=== PATIENT | female | born 1995 | race Caucasian/White ===

== ENCOUNTER 2017-10-29 08:03 | Emergency (ER) | payer OTHER ==
[2017-10-29 08:09] VITALS: BMI 26.6
--- NOTE | 2017-10-29 08:47 | PDOC ---
History of Present Illness - General Chief Complaint: Vaginal Bleeding Stated Complaint: VAGINAL BLEEDING, 14 WEEKS Time Seen by Provider: 10/29/17 08:33 History Source: Patient Exam Limitations: No Limitations - History of Present Illness Initial Comments: CHIEF COMPLAINT: 22 y/o afebrile female, A1, approximately 14 weeks with due date of 05/06/18 c/o abdominal cramping and vaginal bleeding this morning. HISTORY OF PRESENT ILLNESS: The patient admits to some passage of clots. She denies f/c, n/v/d, CP, SOB, back pain, hematuria, dysuria. Last ultrasound was last week and everything was normal. ENTERPRISE ARCHITECT is Dr. Augustin Vital signs on arrival are within normal limits. REVIEW OF SYSTEMS: GENERAL/CONSTITUTIONAL: No fever/chills. No weakness. No weight change. HEAD, EYES, EARS, NOSE AND THROAT: No change in vision. No ear pain or discharge. No sore throat. CARDIOVASCULAR: No chest pain or shortness of breath. RESPIRATORY: No cough, wheezing, or hemoptysis. GASTROINTESTINAL: +abd cramping and vaginal bleeding. No nausea, vomiting, diarrhea. GENITOURINARY: No dysuria, frequency, or change in urination. MUSCULOSKELETAL: No joint or muscle swelling or pain. No neck or back pain. SKIN: No rash or easy bruising. NEUROLOGIC: No headache, vertigo, loss of consciousness, or loss of sensation. PHYSICAL EXAM: GENERAL: The patient is awake, alert, and fully oriented, in no acute distress. HEAD: Normal with no signs of trauma. ENT: Pupils equal, round and reactive to light, extraocular movements intact, sclera anicteric, conjunctiva clear. Neck supple. LUNGS: Clear to auscultation bilaterally. Normal excursion. No respiratory distress or use of accessory muscles. CV: RRR, S1/S2, no MRG. Cap refill < 2 sec. ABDOMEN: Soft, non-distended, non-tender even to deep palpation, no hepatomegaly or splenomegaly, no masses. BACK: No CVA TTP b/l VAGINAL: No blood noted in the vaginal canal. Digital exam not performed. EXTREMITIES: Normal range of motion, no edema. NEUROLOGICAL: Normal speech, normal gait. CN II-XII grossly intact. SKIN: Warm, dry, normal turgor, no rashes or lesions noted. Past History - Past Medical History Allergies/Adverse Reactions: Allergies Allergy/AdvReac Type Severity Reaction Status Date / Time shrimp Allergy Verified 10/29/17 09:24 Home Medications: Ambulatory Orders No Home Medications 0 dose .ROUTE UTDICT 06/22/12 COPD: No - Reproductive History Is Patient Now?: Yes (#): 2 Para: 1 - Suicide/Smoking/Psychosocial Hx Smoking Status: No Smoking History: Never smoked Number of Cigarettes Smoked Daily: 0 *Physical Exam - Vital Signs Last Vital Signs Temp Pulse Resp BP Pulse Ox 98 F 89 18 111/73 99 10/29/17 08:06 10/29/17 08:06 10/29/17 08:06 10/29/17 08:06 10/29/17 08:06 ED Treatment Course - LABORATORY CBC & Chemistry Diagram: 10/29/17 08:55 - RADIOLOGY Radiology Studies Ordered: Category Date Time Status LIMITED US [US] Stat Ultrasound 10/29/17 08:35 Ordered Medical Decision Making - Medical Decision Making A/P: 22 y/o female, approximately 14 weeks c/o vaginal bleeding and abdominal cramping today. The patient states the bleeding has lessened since earlier today. Plan is as follows: 1. Labs 2. UA/culture 3. Ultrasound Ultrasound IMPRESSION: Single live intrauterine gestation of 14 weeks and 4 days. heart rate = 149bpm. The cervical length is normal, measuring 3.6cm. The internal os is closed with no evidence of funneling. Waiting on urine and type and screen. O+ blood type UA negative for UTI. Gave the patient all of her results. Will discharge to home with instructions to stay hydrated and f/u with her ENTERPRISE ARCHITECT as soon as possible. Pt instructed to return to the ER with any worsening or concerning symptoms. The patient verbalizes understanding of all instructions, has no further questions and is awaiting discharge. *DC/Admit/Observation/Transfer Diagnosis at time of Disposition: Vaginal bleeding in - Discharge Dispostion Disposition: HOME Condition at time of disposition: Good - Referrals Referrals: Nica King MD [Primary Care Provider] - - Patient Instructions Printed Discharge Instructions: DI for Vaginal Bleeding During Additional Instructions: Discharge Instructions: -Your ultrasound was normal, showing a baby of 14 weeks 4 days with heart rate of 149bpm -Please stay well hydrated -Follow up with your ENTERPRISE ARCHITECT as soon as possible -Return to the ER with any worsening or concerning symptoms - Post Discharge Activity Forms/Work/School Notes: Back to Work
[2017-10-29 09:19] LABS: BASO % 0.5 % (0-2.0); EOS % 0.8 % (0-4.5); HEMATOCRIT 39.1 % (32.4-45.2); LYMPH % 20.1 % (8-40); MCH 27.7 pg (25.7-33.7); MCHC 33.2 g/dl (32.0-36.0); MEAN CELL VOLUME 83.4 fl (80-96); MEAN PLT VOLUME 7.4 fl (7.5-11.1); MONO % 6.2 % (3.8-10.2); NEUT % 72.4 % (42.8-82.8); PLATELET COUNT 179 K/MM3 (134-434); RBC 4.68 M/mm3 (3.60-5.2); RDW 14.4 % (11.6-15.6); WHITE BLOOD COUNT 12.5 K/mm3 (4.0-10.0)
[2017-10-29 11:45] LABS: URINE APPEARANCE CLEAR; URINE BILIRUBIN NEGATIVE (NEGATIVE); URINE BLOOD NEGATIVE (NEGATIVE); URINE COLOR LTYELLOW; URINE GLUCOSE (UA) NEGATIVE (NEGATIVE); URINE KETONE NEGATIVE (NEGATIVE); URINE LEUK ESTERASE NEGATIVE (NEGATIVE); URINE NITRITE NEGATIVE (NEGATIVE); URINE PROTEIN NEGATIVE (NEGATIVE); URINE UROBILINOGEN NEGATIVE mg/dL (0.2-1.0)
[2017-10-29 12:20] VITALS: BP 139/72; PULSE 67; TEMP 98.1
== END 2017-10-29 12:24 | disposition home or self-care (01) ==
LOC: JER 08:03
DX: O26.891 Other specified pregnancy related conditions, first trimester (principal); O20.8 Other hemorrhage in early pregnancy; Z3A.14 14 weeks gestation of pregnancy
CPT/HCPCS: 36415; 76815-TC; 81003; 85025; 86850; 86900; 86901; 87086; 99282-25

== ENCOUNTER 2018-02-02 12:30 | Emergency (ER) | payer SELFPAY ==
[2018-02-02 12:56] VITALS: BP 128/78; PULSE 71; TEMP 98.2; BMI 26.3
--- NOTE | 2018-02-02 13:53 | PDOC ---
History of Present Illness - General History Source: Patient Exam Limitations: No Limitations - History of Present Illness Initial Comments: 02/02/18 14:07 The patient is a 22 year old A2 female with a significant PMH of 2 prior miscarriages who presents to the emergency department with abdominal cramping beginning approximately last night. The patient states she took a home test on Tuesday which was positive. She reports calling her RESPITE WORKER in light of her positive home test and abdominal cramping given her high- risk based on her previous miscarriages, who prompted her to visit the ED. She states her LMP was 12/30/17. The patient notes she felt similar abdominal cramping prior to her previous miscarriages. The patient denies chest pain, shortness of breath, headache and dizziness. Denies fever, chills, nausea, vomit, diarrhea and constipation. Denies dysuria, frequency, urgency and hematuria. Allergies: NKA Past surgical history: D&C. Social history: No reported cigarette, alcohol, or drug use. PCP: Dr. Nica King RESPITE WORKER: Dr. Neal <Ilan Candelaria - Last Filed: 02/02/18 15:39> - General History Source: Patient Exam Limitations: No Limitations <Ro Fishman - Last Filed: 02/02/18 16:42> - General Chief Complaint: Pain Stated Complaint: PAIN () Time Seen by Provider: 02/02/18 13:23 Past History <Ilan Candelaria - Last Filed: 02/02/18 15:39> - Past Medical History COPD: No - Reproductive History Is Patient Now?: Yes (#): 4 Para: 1 - Suicide/Smoking/Psychosocial Hx Smoking Status: No Smoking History: Never smoked Have you smoked in the past 12 months: No Number of Cigarettes Smoked Daily: 0 Information on smoking cessation initiated: No Hx Alcohol Use: No Drug/Substance Use Hx: No Substance Use Type: None <Ro Fishman - Last Filed: 02/02/18 16:42> - Past Medical History Allergies/Adverse Reactions: Allergies Allergy/AdvReac Type Severity Reaction Status Date / Time shrimp Allergy Verified 02/02/18 12:49 Home Medications: Ambulatory Orders No Home Medications 0 dose .ROUTE UTDICT 06/22/12 Review of Systems - Review of Systems Able to Perform ROS?: Yes Comments:: 02/02/18 14:07 GENERAL/CONSTITUTIONAL: No fever or chills. No weakness. HEAD, EYES, EARS, NOSE AND THROAT: No change in vision. No ear pain or discharge. No sore throat. CARDIOVASCULAR: No chest pain or shortness of breath. RESPIRATORY: No cough, wheezing, or hemoptysis. GASTROINTESTINAL:(+) Abdominal cramping. No nausea, vomiting, diarrhea or constipation. GENITOURINARY: No dysuria, frequency, or change in urination. MUSCULOSKELETAL: No joint or muscle swelling or pain. No neck or back pain. SKIN: No rash NEUROLOGIC: No headache, vertigo, loss of consciousness, or change in strength/ sensation. ENDOCRINE: No increased thirst. No abnormal weight change. HEMATOLOGIC/LYMPHATIC: No anemia, easy bleeding, or history of blood clots. ALLERGIC/IMMUNOLOGIC: No hives or skin allergy. <Ilan Candelaria Filed: 02/02/18 15:39> *Physical Exam - Vital Signs Last Vital Signs Temp Pulse Resp BP Pulse Ox 98.2 F 71 16 128/78 100 02/02/18 12:49 02/02/18 12:49 02/02/18 12:49 02/02/18 12:49 02/02/18 12:49 - Physical Exam Comments: 02/02/18 14:34 GENERAL: Awake, alert, and fully oriented, in no acute distress HEAD: No signs of trauma EYES: PERRLA, EOMI, sclera anicteric, conjunctiva clear ENT: Auricles normal inspection, hearing grossly normal, nares patent, oropharynx clear without exudates. Moist mucosa NECK: Normal ROM, supple, no lymphadenopathy, JVD, or masses LUNGS: Breath sounds equal, clear to auscultation bilaterally. No wheezes, and no crackles HEART: Regular rate and rhythm, normal S1 and S2, no murmurs, rubs or gallops ABDOMEN: (+) Mild lower abdominal tenderness. Soft, normoactive bowel sounds. No guarding, no rebound. No masses EXTREMITIES: Normal range of motion, no edema. No clubbing or cyanosis. No cords, erythema, or tenderness NEUROLOGICAL: Cranial nerves II through XII grossly intact. Normal speech, normal gait SKIN: Warm, Dry, normal turgor, no rashes or lesions noted. <Ilan Candelaria Filed: 02/02/18 15:39> - Vital Signs Last Vital Signs Temp Pulse Resp BP Pulse Ox 98.2 F 71 16 128/78 100 02/02/18 12:49 02/02/18 12:49 02/02/18 12:49 02/02/18 12:49 02/02/18 12:49 <Ro Fishman - Last Filed: 02/02/18 16:42> ED Treatment Course - LABORATORY CBC & Chemistry Diagram: 02/02/18 14:15 02/02/18 14:15 <Ilan Candelaria - Last Filed: 02/02/18 15:39> - LABORATORY CBC & Chemistry Diagram: 02/02/18 14:15 02/02/18 14:15 - RADIOLOGY Radiology Studies Ordered: Category Date Time Status TRANSVAGINAL US PREG [US] Stat Ultrasound 02/02/18 13:52 Ordered <Ro Fishman - Last Filed: 02/02/18 16:42> Medical Decision Making - Medical Decision Making 02/02/18 14:20 Mr. Patrick is a 22-year-old female, 0-1 last nausea. December 30 presents emergency department with a complaint of lower abdominal pain. Symptoms began yesterday. Has been constantly present. No vaginal bleeding. Patient had a recent test was positive. No past medical history. No history of fibroids, cysts. Patient contacted her primary care physician who requested that she come to the emergency department for further evaluation Present diagnosis: Menorrhagia, normal , threatened AB, ectopic . Will do Labs Ultrasound Reassess 02/02/18 15:40 Laboratory Tests 02/02/18 02/02/18 02/02/18 14:00 14:15 14:15 WBC 10.6 H Hgb 12.4 Hct 37.3 Plt Count 182 Sodium 139 Potassium 4.1 Chloride 105 Carbon Dioxide 26 BUN 11 Creatinine 0.6 Random Glucose 81 Beta HCG, Quant 1155.6 Urine Blood 1+ H Urine Nitrite Negative Ur Leukocyte Esterase 2+ H 02/02/18 16:38 Ultrasound demonstrates a small fluid collection in the endometrial cavity this with intrauterine gestational sac, mean sac diameter corresponds to gestational age of 5. No polio sac are visualized. Follow up in 48 hours for repeat BHCG Clinical Impression:Early , initial presentation <Ro Fishman - Last Filed: 02/02/18 16:42> *DC/Admit/Observation/Transfer - Attestations Scribe Attestion: 02/02/18 14:07 Documentation prepared by Ilan Candelaria, acting as medical specialist for Ro Fishman MD. <Ilan Candelaria - Last Filed: 02/02/18 15:39> - Discharge Dispostion Decision to Admit order: No <Ro Fishman - Last Filed: 02/02/18 16:42> Diagnosis at time of Disposition: Early stage of - Discharge Dispostion Disposition: HOME Condition at time of disposition: Stable - Referrals Referrals: Nica King MD [Primary Care Provider] - - Patient Instructions Printed Discharge Instructions: DI for Abdominal Pain -- Early Additional Instructions: PLEASE RETURN TO THE ER OR SEE YOUR DOCTOR FOR REPEAT BHCG IN 48 HOURS RETURN TO THE ER IMMEDIATELY FOR VAGINAL BLEEDING, INCREASING PAIN - Post Discharge Activity
[2018-02-02 14:38] LABS: BASO % 0.4 % (0-2.0); EOS % 1.1 % (0-4.5); HEMATOCRIT 37.3 % (32.4-45.2); HEMOGLOBIN 12.4 GM/dL (10.7-15.3); LYMPH % 23.3 % (8-40); MCH 29.1 pg (25.7-33.7); MCHC 33.4 g/dl (32.0-36.0); MEAN CELL VOLUME 87.2 fl (80-96); MEAN PLT VOLUME 8.2 fl (7.5-11.1); MONO % 6.4 % (3.8-10.2); NEUT % 68.8 % (42.8-82.8); PLATELET COUNT 182 K/MM3 (134-434); RBC 4.27 M/mm3 (3.60-5.2); RDW 13.1 % (11.6-15.6); WHITE BLOOD COUNT 10.6 K/mm3 (4.0-10.0)
[2018-02-02 15:01] LABS: URINE APPEARANCE CLEAR; URINE BILIRUBIN NEGATIVE (<2.0 mg/dL); URINE COLOR STRAW; URINE GLUCOSE (UA) NEGATIVE (NEGATIVE); URINE KETONE NEGATIVE (NEGATIVE); URINE NITRITE NEGATIVE (NEGATIVE); URINE PROTEIN NEGATIVE (NEGATIVE); URINE UROBILINOGEN NEGATIVE mg/dL (0.2-1.0)
[2018-02-02 15:08] LABS: ALBUMIN 3.3 g/dl (3.4-5.0); ANION GAP 8 (8-16); BLOOD UREA NITROGEN 11 mg/dL (7-18); CALCIUM 8.1 mg/dL (8.5-10.1); CHLORIDE 105 mmol/L (98-107); CO2 26 mmol/L (21-32); CREATININE 0.6 mg/dL (0.55-1.02); GLUCOSE,RANDOM 81 mg/dL (74-106); SGPT/ALT 16 U/L (12-78); SODIUM 139 mmol/L (136-145)
[2018-02-02 15:22] LABS: URINE LEUK ESTERASE 2+ (NEGATIVE)
[2018-02-02 15:25] LABS: ALK PHOS 72 U/L (45-117); BILIRUBIN,TOTAL 0.4 mg/dL (0.2-1.0); TOT PROT 6.6 g/dl (6.4-8.2)
[2018-02-02 15:26] LABS: POTASSIUM 4.1 mmol/L (3.5-5.1)
[2018-02-02 15:27] LABS: SGOT/AST 20 U/L (15-37)
[2018-02-02 15:33] LABS: EPI CELLS FEW /HPF (FEW)
== END 2018-02-02 16:56 | disposition home or self-care (01) ==
LOC: JER 12:30
DX: O26.891 Other specified pregnancy related conditions, first trimester (principal); R10.30 Lower abdominal pain, unspecified; Z3A.01 Less than 8 weeks gestation of pregnancy
CPT/HCPCS: 36415; 76817-TC; 80053; 81003; 81015; 84702; 85025; 86850; 86900; 86901; 87086; 99283-25

== ENCOUNTER 2018-04-12 21:46 | Emergency (ER) | payer OTHER ==
[2018-04-12 21:53] VITALS: BP 125/70; PULSE 110; TEMP 98.3; BMI 27.0
--- NOTE | 2018-04-12 22:53 | PDOC ---
Attending Attestation - HPI HPI: 04/13/18 01:13 The patient is a 23-year-old female who is 16 weeks , A4, with no past medical history, who presents to the ED with vaginal spotting that began this morning. The patient is concerned because she reports having a history of uterine infection during her second and 3 prior miscarriage. The patient denies any fever, chills, nausea, vomiting, diarrhea, or abdominal pain. - Physicial Exam PE: 04/13/18 01:14 GENERAL: Awake, alert, and fully oriented, in no acute distress HEAD: No signs of trauma EYES: PERRLA, EOMI, sclera anicteric, conjunctiva clear ENT: Auricles normal inspection, hearing grossly normal, nares patent, oropharynx clear without exudates. Moist mucosa NECK: Normal ROM, supple, no lymphadenopathy, JVD, or masses LUNGS: Breath sounds equal, clear to auscultation bilaterally. No wheezes, and no crackles HEART: (+)Tachycardic. Normal S1 and S2, no murmurs, rubs or gallops ABDOMEN: (+)Gravid abdomen below the umbilicus, Bedside US showed heart rate of 152. Soft, nontender, normoactive bowel sounds. No guarding, no rebound. No masses EXTREMITIES: Normal range of motion, no edema. No clubbing or cyanosis. No cords, erythema, or tenderness NEUROLOGICAL: Cranial nerves II through XII grossly intact. SKIN: Warm, Dry, normal turgor, no rashes or lesions noted <Thalia Cardona - Last Filed: 04/13/18 01:21> - Resident Resident Name: Brock Lopez - ED Attending Attestation I have performed the following: I have examined & evaluated the patient, The case was reviewed & discussed with the resident, I agree w/resident's findings & plan, Exceptions are as noted - Medical Decision Making 04/12/18 22:53 I, Dr. Kassidy Briscoe, DO, attest that this document has been prepared under my direction and personally reviewed by me in its entirety. I further attest, that it accurately reflects all work, treatment, procedures and medical decision -making performed by me. 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 Boland as outpt -spotting today -no passage of clots -will obtain labs, preg limited us bedside ultrasound shows an IUP with FH of 152, movement of the baby on ultrasound 04/13/18 01:41 pelvic ultraosund: IUP at 14w2d without definitive abnl, hr 148 os closed on resident exam -stable for dc to home will need follow up with her laminating machine operator helper <Kassidy Briscoe - Last Filed: 04/13/18 01:42> Attestations - Attestations 04/13/18 01:15 Documentation prepared by Thalia Cardona, acting as medical assisting instructor for Kassidy Briscoe DO. <Thalia Cardona - Last Filed: 04/13/18 01:21>
--- NOTE | 2018-04-12 23:59 | PDOC ---
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 Patient reports acute onset of vaginal spotting this AM. Denies clotting, sexual penetration, dyspareurnia, vaginal discharge, pelvic pain. Denies abdominal trauma. Patient reports multiple miscarriages following prior pelvic infection. No tampon or pad use. Patient denies N/V, F,C, CP, SOB, urinary complaints, abdominal pain, diarrhea, constipation, lightheadedness, weakness, sensory changes. PMHx: as noted above. ROS: as noted SHx: Denies Etoh, tobacco, IVDA. Allergies: NKDA TRANSPORTATION ECONOMICS TEACHER: Dr. thomas Past History - Past Medical History Allergies/Adverse Reactions: Allergies Allergy/AdvReac Type Severity Reaction Status Date / Time shellfish derived Allergy Verified 04/12/18 21:53 shrimp Allergy Verified 04/12/18 21:53 Home Medications: Ambulatory Orders No Home Medications 0 dose .ROUTE UTDICT 06/22/12 COPD: No - Reproductive History (#): 4 Para: 1 - Suicide/Smoking/Psychosocial Hx Smoking Status: No Smoking History: Never smoked Have you smoked in the past 12 months: No Number of Cigarettes Smoked Daily: 0 Hx Alcohol Use: No Drug/Substance Use Hx: No Substance Use Type: None Review of Systems - Review of Systems Comments:: 04/13/18 00:05 GENERAL/CONSTITUTIONAL: No fever or chills. No weakness. HEAD, EYES, EARS, NOSE AND THROAT: No change in vision. No ear pain or discharge. No sore throat. CARDIOVASCULAR: No chest pain or shortness of breath RESPIRATORY: No cough, wheezing, or hemoptysis. GASTROINTESTINAL: No nausea, vomiting, diarrhea or constipation. GENITOURINARY: + Vaginal bleeding. No dysuria, frequency, or change in urination. MUSCULOSKELETAL: No joint or muscle swelling or pain. No neck or back pain. SKIN: No rash NEUROLOGIC: No headache, vertigo, loss of consciousness, or change in strength/ sensation. ENDOCRINE: No increased thirst. No abnormal weight change HEMATOLOGIC/LYMPHATIC: No anemia, easy bleeding, or history of blood clots. ALLERGIC/IMMUNOLOGIC: No hives or skin allergy. *Physical Exam - Vital Signs Last Vital Signs Temp Pulse Resp BP Pulse Ox 98.3 F 110 H 18 125/70 99 04/12/18 21:51 04/12/18 21:51 04/12/18 21:51 04/12/18 21:51 04/12/18 21:51 - Physical Exam Comments: 04/13/18 00:05 GENERAL: Awake, alert, and fully oriented, in no acute distress HEAD: No signs of trauma, normocephalic, atraumatic EYES: PERRLA, EOMI, sclera anicteric, conjunctiva clear ENT: Hearing grossly normal, nares patent, oropharynx clear without exudates. Moist mucosa NECK: Normal ROM, supple, no lymphadenopathy, JVD, or masses LUNGS: No distress, speaks full sentences, clear to auscultation bilaterally HEART: Regular rate and rhythm, normal S1 and S2, no murmurs, rubs or gallops, peripheral pulses normal and equal bilaterally. ABDOMEN: Soft, nontender, normoactive bowel sounds. No guarding, no rebound. No masses. Neg CVA ttp. : Normal appearing external genitalia. Absent blood in rectal vault. Minimal blood around cervix. Cervical os closed. Absent CMT on BM. EXTREMITIES : Normal inspection, Normal range of motion, no edema. No clubbing or cyanosis. 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 HR 110, Vitals otherwise wnl, AF. Abdomen non tender. Cervical os closed, minimal blood in vaginal vault. Will assess for viable IUP and consider related causes of vaginal bleeding including threatened , placenta previa, ectopic , subchorionic hemorrhage. Ed Course: CBC,CMP, T&S Transabdominal U/S 04/13/18 00:06 Bedside U/S: FHR 152, with movement, and visible IUP. 04/13/18 01:27 Transabdominal U/S: 14w2d IUP with no abnml. Patient stable for d/c with return precautions. Advised to f/u with Railroad Operator within 48 hours. *DC/Admit/Observation/Transfer Diagnosis at time of Disposition: Vaginal bleeding in - Discharge Dispostion Condition at time of disposition: Stable - Referrals Referrals: Nica King MD [Primary Care Provider] - - Patient Instructions Printed Discharge Instructions: DI for Vaginal Bleeding During Additional Instructions: Please return to the emergency department with any new or worsening symptoms or concerns. Please follow up with your health policy manager physician within 48 hours. - Post Discharge Activity - Attestations Physician Attestion: 04/13/18 00:24 I attest to the information provided in this note.
[2018-04-13 00:41] LABS: URINE APPEARANCE CLEAR; URINE BILIRUBIN NEGATIVE (<2.0 mg/dL); URINE COLOR LTYELLOW; URINE GLUCOSE (UA) NEGATIVE (NEGATIVE); URINE KETONE NEGATIVE (NEGATIVE); URINE LEUK ESTERASE NEGATIVE (NEGATIVE); URINE NITRITE NEGATIVE (NEGATIVE); URINE PROTEIN NEGATIVE (NEGATIVE); URINE UROBILINOGEN NEGATIVE mg/dL (0.2-1.0)
[2018-04-13 00:52] LABS: BASO % 0.3 % (0-2.0); EOS % 1.3 % (0-4.5); HEMATOCRIT 36.3 % (32.4-45.2); HEMOGLOBIN 12.3 GM/dL (10.7-15.3); LYMPH % 21.6 % (8-40); MCH 29.1 pg (25.7-33.7); MCHC 33.9 g/dl (32.0-36.0); MEAN CELL VOLUME 85.9 fl (80-96); MEAN PLT VOLUME 7.9 fl (7.5-11.1); MONO % 5.9 % (3.8-10.2); NEUT % 70.9 % (42.8-82.8); PLATELET COUNT 191 K/MM3 (134-434); RBC 4.23 M/mm3 (3.60-5.2); RDW 13.9 % (11.6-15.6); WHITE BLOOD COUNT 13.2 K/mm3 (4.0-10.0)
[2018-04-13 01:01] LABS: ALBUMIN 2.9 g/dl (3.4-5.0); ANION GAP 7 (8-16); BLOOD UREA NITROGEN 14 mg/dL (7-18); CALCIUM 8.4 mg/dL (8.5-10.1); CHLORIDE 107 mmol/L (98-107); CO2 25 mmol/L (21-32); CREATININE 0.7 mg/dL (0.55-1.02); GLUCOSE,RANDOM 93 mg/dL (74-106); POTASSIUM 3.4 mmol/L (3.5-5.1); SGOT/AST 13 U/L (15-37); SGPT/ALT 18 U/L (12-78); SODIUM 139 mmol/L (136-145)
[2018-04-13 01:20] LABS: ALK PHOS 74 U/L (45-117); BILIRUBIN,TOTAL 0.1 mg/dL (0.2-1.0); TOT PROT 6.4 g/dl (6.4-8.2)
== END 2018-04-13 01:50 | disposition home or self-care (01) ==
LOC: JER 21:46
DX: O26.892 Other specified pregnancy related conditions, second trimester (principal); O46.92 Antepartum hemorrhage, unspecified, second trimester; Z3A.14 14 weeks gestation of pregnancy
CPT/HCPCS: 36415; 76815-TC; 80053; 81003; 84702; 85025; 86850; 86900; 86901; 99281-25

== ENCOUNTER 2018-04-28 11:39 | Emergency (ER) | payer OTHER ==
[2018-04-28 12:17] VITALS: BP 117/57; PULSE 74; TEMP 97.8; BMI 28.1
--- NOTE | 2018-04-28 12:59 | PDOC ---
History of Present Illness - General Chief Complaint: Vaginal Bleeding Stated Complaint: VAGINAL BLEEDING (18 WKS ) Time Seen by Provider: 04/28/18 12:41 History Source: Patient Exam Limitations: No Limitations - History of Present Illness Initial Comments: 04/28/18 13:33 Ms. Samuel is a 23 yo F (2x miscarriages (2017, 2018), 1 (2017)), still in 2013 (one of the twins)) at 17 weeks 1 day presents to the emergency department with vaginal bleeding. She states yesterday at 6pm, she had spotting without abdominal cramping. At 11am today, she had soaked through a pad with bright red blood per patient with "black sand" but denies blood clots. Concurrently, she has abdominal pain in the lower abdomen region that feels like her menstrual cramps but of less intensity. She denies the following : fever, headaches, recent exposure to children with rashes, trauma, amniotic sac rupturing, chest pain, SOB, dysuria, hematuria, diarrhea, N/V, and dizziness. She is followed by [[Dr. Wood]] for OBGYN care. She states she has used IVF in the past for previous prengancies (not current). 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 Denies autoimmune disorders. Pmhx: None Shx: None Meds: vitamins Allergies: NKDA Social hx: Denies tobacco, alcohol and drug use. OBGYN hx: Delivered vaginally a full term female without complications in 2012. She delivered twins but one of them was still . 04/28/18 13:45 Past History - Past Medical History Allergies/Adverse Reactions: Allergies Allergy/AdvReac Type Severity Reaction Status Date / Time shellfish derived Allergy Verified 04/12/18 21:53 shrimp Allergy Verified 04/12/18 21:53 Home Medications: Ambulatory Orders No Home Medications 0 dose .ROUTE UTDICT 06/22/12 COPD: No - Reproductive History (#): 4 Para: 1 - Suicide/Smoking/Psychosocial Hx Smoking Status: No Smoking History: Never smoked Have you smoked in the past 12 months: No Number of Cigarettes Smoked Daily: 0 Hx Alcohol Use: No Drug/Substance Use Hx: No Substance Use Type: None Review of Systems - Review of Systems Able to Perform ROS?: Yes Constitutional: No: Chills, Diaphoresis, Fever HEENTM: No: Recent change in vision, Nose Pain, Throat Pain, Mouth Pain Respiratory: No: Cough, Shortness of Breath Cardiac (ROS): No: Chest Pain, Lightheadedness, Palpitations ABD/GI: Yes: Abdominal cramping (hypogastric region). No: Constipated, Diarrhea , Nausea, Rectal Bleeding, Vomiting, Tarry Stools : No: Burning, Dysuria, Hematuria Musculoskeletal: No: Back Pain Integumentary: No: Rash Neurological: No: Headache, Numbness Psychiatric: No: Change in Appetite Endocrine: No: Unexplained Weight Gain Hematologic/Lymphatic: No: Anemia *Physical Exam - Vital Signs Last Vital Signs Temp Pulse Resp BP Pulse Ox 97.8 F 74 20 117/57 99 04/28/18 12:14 04/28/18 12:14 04/28/18 12:14 04/28/18 12:14 04/28/18 12:14 - Physical Exam General Appearance: Yes: Nourished, Appropriately Dressed HEENT: positive: EOMI, RICO Neck: negative: Lymphadenopathy (R), Lymphadenopathy (L) Respiratory/Chest: positive: Lungs Clear, Normal Breath Sounds Cardiovascular: positive: Regular Rhythm, Regular Rate, S1, S2. negative: Systolic Murmur Vascular Pulses: Dorsalis-Pedis (R): 3+, Doralis-Pedis (L): 3+ Female Pelvic Exam: positive: cervical os closed, other (wilson dark blood clots seen suggestive as old clots. ) Gastrointestinal/Abdominal: positive: Normal Bowel Sounds. negative: Tender Lymphatic: negative: Adenopathy Musculoskeletal: negative: CVA Tenderness Extremity: positive: Normal Capillary Refill, Normal Inspection Integumentary: positive: Normal Color, Dry, Warm Neurologic: positive: Fully Oriented, Alert ED Treatment Course - LABORATORY CBC & Chemistry Diagram: 04/28/18 12:45 04/28/18 12:45 Medical Decision Making - Medical Decision Making 04/29/18 18:12 Ms. 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 Ddx complete vs incomplete , placenta previa vs abruption, and hematuria. Initial vitals Initial Vital Signs Temp Pulse Resp BP Pulse Ox 97.8 F 74 20 117/57 99 04/28/18 12:14 04/28/18 12:14 04/28/18 12:14 04/28/18 12:14 04/28/18 12:14 Work up: Laboratory Tests 04/28/18 04/28/18 04/28/18 12:45 12:45 12:45 WBC 9.2 RBC 4.44 Hgb 13.0 Hct 38.4 MCV 86.4 MCH 29.3 MCHC 33.9 RDW 14.0 Plt Count 170 MPV 8.3 Absolute Neuts (auto) 6.8 Neutrophils % 73.8 Lymphocytes % 18.9 Monocytes % 4.5 Eosinophils % 2.0 Basophils % 0.8 Nucleated RBC % 0 PT with INR 11.30 INR 1.00 Sodium Potassium Chloride Carbon Dioxide Anion Gap BUN Creatinine Creat Clearance w eGFR Random Glucose Calcium Total Bilirubin AST ALT Alkaline Phosphatase Total Protein Albumin Beta HCG, Quant Urine Color Yellow Urine Appearance Clear Urine pH 7.0 Ur Specific Clifford 1.008 Urine Protein Negative Urine Glucose (UA) Negative Urine Ketones Negative Urine Blood 1+ H Urine Nitrite Negative Urine Bilirubin Negative Urine Urobilinogen Negative Ur Leukocyte Esterase Negative Urine WBC (Auto) <1 Urine RBC (Auto) <1 Ur Epithelial Cells Rare Urine HCG, Qual Positive Blood Type Antibody Screen 04/28/18 04/28/18 12:45 12:45 WBC RBC Hgb Hct MCV MCH MCHC RDW Plt Count MPV Absolute Neuts (auto) Neutrophils % Lymphocytes % Monocytes % Eosinophils % Basophils % Nucleated RBC % PT with INR INR Sodium 140 Potassium 3.9 Chloride 107 Carbon Dioxide 25 Anion Gap 8 BUN 9 Creatinine 0.6 Creat Clearance w eGFR > 60 Random Glucose 93 Calcium 8.5 Total Bilirubin 0.3 AST 19 ALT 21 Alkaline Phosphatase 74 Total Protein 6.6 Albumin 3.0 L Beta HCG, Quant 5634.1 Urine Color Urine Appearance Urine pH Ur Specific Clifford Urine Protein Urine Glucose (UA) Urine Ketones Urine Blood Urine Nitrite Urine Bilirubin Urine Urobilinogen Ur Leukocyte Esterase Urine WBC (Auto) Urine RBC (Auto) Ur Epithelial Cells Urine HCG, Qual Blood Type O POSITIVE Antibody Screen Negative Transvaginal ultrasound showed "thickened endometrium with heterogenous echotexture and vascular flow on the color doppler. No intrauterine gestational sac identified. Suggestive of interval miscarriage with blood clots. Cannot rule out retained products of conception." Pelvic exam showed wilson-red old blood clots surrounding the os. Os was closed. No active bleeding seen or bright red blood. No adnexal tenderness. At approximately 5:00 pm, the patient eloped from the department. A phone call was made to her phone number on file but went to voice mail. A page was set up to be executed on Apr 29 at 6am to notify the patient to return to the department if hemorrhaging occurs and to follow up with her OBGYN doctor on Tuesday. Disposition: elope from department. *DC/Admit/Observation/Transfer Diagnosis at time of Disposition: Eloped from emergency department - Discharge Dispostion Disposition: ELOPED Condition at time of disposition: Unchanged/Unknown - Referrals Referrals: Nica King MD [Primary Care Provider] - - Patient Instructions - Post Discharge Activity
--- NOTE | 2018-04-28 13:19 | PDOC ---
Attending Attestation - Resident Resident Name: LeeRamez - ED Attending Attestation I have performed the following: I have examined & evaluated the patient, The case was reviewed & discussed with the resident, I agree w/resident's findings & plan, Exceptions are as noted - HPI HPI: 04/28/18 13:15 23y F at 17 weeks gestation presents with complaint of vaginal bleeding, started spotting yesterday, today more bleeding today, soaked through 2 pads recently. Pt followed by campaign manager. Pt endorses some craming in the lower abdomen. Pt notes some movement lsat night, but nontoday. Denie sany fever /chills, sob, back pain, n/v, dysuria,headache. 04/28/18 17:31 on pelvic exam os open, scant bloody dc with some maroon like masses in vaginal vault no cmt, no other discharge from vault abd: soft nontender ddx: suspect impending/completed ab labs noted for beta at 5600 US shows no IUP - c/w completed ab pt eloped prior to discharge will atempte to call pt back to let her know to fu with her executive meeting manager on tuesday or return for increased pain or bleeding, fever/chills or other concerns - Physicial Exam PE: 04/30/18 16:25 see above - Medical Decision Making 04/30/18 16:25 see above
[2018-04-28 13:28] LABS: BASO % 0.8 % (0-2.0); HEMATOCRIT 38.4 % (32.4-45.2); LYMPH % 18.9 % (8-40); MCH 29.3 pg (25.7-33.7); MCHC 33.9 g/dl (32.0-36.0); MEAN CELL VOLUME 86.4 fl (80-96); MEAN PLT VOLUME 8.3 fl (7.5-11.1); MONO % 4.5 % (3.8-10.2); NEUT % 73.8 % (42.8-82.8); PLATELET COUNT 170 K/MM3 (134-434); RBC 4.44 M/mm3 (3.60-5.2); WHITE BLOOD COUNT 9.2 K/mm3 (4.0-10.0)
[2018-04-28 13:33] LABS: HCG,QUALITATIVE URINE POSITIVE
[2018-04-28 13:37] LABS: URINE APPEARANCE CLEAR; URINE BILIRUBIN NEGATIVE (<2.0 mg/dL); URINE GLUCOSE (UA) NEGATIVE (NEGATIVE); URINE KETONE NEGATIVE (NEGATIVE); URINE LEUK ESTERASE NEGATIVE (NEGATIVE); URINE NITRITE NEGATIVE (NEGATIVE); URINE PROTEIN NEGATIVE (NEGATIVE); URINE UROBILINOGEN NEGATIVE mg/dL (0.2-1.0)
[2018-04-28 13:40] LABS: PROTHROMBIN TIME (PATIENT) 11.3 SEC (9.7-13.0)
[2018-04-28 13:51] LABS: ALK PHOS 74 U/L (45-117); ANION GAP 8 (8-16); BILIRUBIN,TOTAL 0.3 mg/dL (0.2-1.0); BLOOD UREA NITROGEN 9 mg/dL (7-18); CALCIUM 8.5 mg/dL (8.5-10.1); CHLORIDE 107 mmol/L (98-107); CO2 25 mmol/L (21-32); CREATININE 0.6 mg/dL (0.55-1.02); GLUCOSE,RANDOM 93 mg/dL (74-106); POTASSIUM 3.9 mmol/L (3.5-5.1); SGOT/AST 19 U/L (15-37); SGPT/ALT 21 U/L (12-78); SODIUM 140 mmol/L (136-145); TOT PROT 6.6 g/dl (6.4-8.2); URINE COLOR YELLOW
[2018-04-28 13:56] LABS: EPI CELLS RARE /HPF (FEW)
[2018-04-28] MEDS ORDERED: ONDANSETRON 4 MG/2 ML VIAL IVPUSH ONE (16:13)
[2018-04-28] MEDS ORDERED: ONDANSETRON 4 MG TABLET PO ONE (16:17)
== END 2018-04-28 17:00 | disposition left against medical advice (07) ==
LOC: JER 11:39
DX: O26.891 Other specified pregnancy related conditions, first trimester (principal); Z3A.17 17 weeks gestation of pregnancy; R10.30 Lower abdominal pain, unspecified; N93.9 Abnormal uterine and vaginal bleeding, unspecified
CPT/HCPCS: 36415; 76815-TC; 80053; 81003; 81015; 84702; 84703; 85025; 85610; 86850; 86900; 86901; 87086; 99283-25

== ENCOUNTER 2021-09-19 05:24 | Emergency (ER) | payer OTHER ==
[2021-09-19 05:52] VITALS: BP 100/75; PULSE 106; TEMP 99.1; BMI 30.4
[2021-09-19] MEDS ORDERED: SODIUM CHLORIDE 1,000 ML IV STA (07:49)
[2021-09-19] MEDS ORDERED: ACETAMINOPHEN 1000 MG/100 ML BAG IVPB ONE (07:49)
[2021-09-19] MEDS ORDERED: ACETAMINOPHEN INJECTION 100 ML IVPB ONE (08:17)
[2021-09-19 08:50] LABS: EPI CELLS 35 /uL (0-25.1); HYALINE CASTS 1 /uL (0-3.1); PH,URINE 5.5 (5.0-8.0); URINE APPEARANCE CLEAR; URINE BACTERIA 368 /uL (0-1359); URINE BILIRUBIN NEGATIVE (NEGATIVE); URINE COLOR YELLOW; URINE GLUCOSE (UA) NEGATIVE (NEGATIVE); URINE KETONE NEGATIVE (NEGATIVE); URINE LEUK ESTERASE 1+ (NEGATIVE); URINE NITRITE NEGATIVE (NEGATIVE); URINE PROTEIN NEGATIVE (NEGATIVE); URINE UROBILINOGEN 0.2 mg/dL (0.2-1.0); URINE WBC 45 /uL (0-25.8)
[2021-09-19 09:05] LABS: URINE RBC 248776 /uL (0-23.9)
[2021-09-20 07:06] LABS: SARS-CoV-2 NAA Detected (Not Detected)
== END 2021-09-19 11:10 | disposition home or self-care (01) ==
LOC: JER 05:24
PROC: 3E0333Z Introduction of Anti-inflammatory into Peripheral Vein, Percutaneous Approach (ICD-10-PCS; principal; 2021-09-19)
PROC: 3E0337Z Introduction of Electrolytic and Water Balance Substance into Peripheral Vein, Percutaneous Approach (ICD-10-PCS; 2021-09-19)
DX: U07.1 COVID-19 (principal); Z3A.15 15 weeks gestation of pregnancy
CPT/HCPCS: 81003; 87070; 87086; 87186; 87804; 99284-25; C9803; J0131; U0003; U0005

== ENCOUNTER 2021-10-16 16:59 | Emergency (ER) | payer OTHER ==
[2021-10-16 17:10] VITALS: BP 143/85; PULSE 112; TEMP 97; BMI 31.1
== END 2021-10-16 18:47 | disposition left against medical advice (07) ==
LOC: JER 16:59
DX: O26.892 Other specified pregnancy related conditions, second trimester (principal); Z3A.19 19 weeks gestation of pregnancy
CPT/HCPCS: 99281-25

== ENCOUNTER 2022-03-01 07:15 | Inpatient (IN) | payer OTHER ==
[2022-03-01] MEDS ORDERED: BUTORPHANOL TARTRATE 1 MG/ML VIAL IVPB PRN (08:02)
[2022-03-01] MEDS ORDERED: DINOPROSTONE 10 MG VAGINAL SUPPOSITORY VG ONE (08:30)
[2022-03-01 08:36] VITALS: BMI 34.9
[2022-03-01] MEDS: ELECTROLYTE-148 SOLN 1,000 ML IV SCH ×2 (08:52→16:27)
[2022-03-02] MEDS ORDERED: AMPICILLIN - 2 GM in SODIUM CHLORIDE 100 ML IVPB ONE (00:10)
[2022-03-02] MEDS ORDERED: BUTORPHANOL TARTRATE 2 MG/ML VIAL ONE (00:14)
[2022-03-02] MEDS ORDERED: OXYTOCIN 30 UNITS in 0.9% NS 30 UNIT/500 ML INFUS.BAG IVPB SCH (00:15)
[2022-03-02] MEDS: ELECTROLYTE-148 SOLN 1,000 ML IV SCH (00:30)
[2022-03-02] MEDS ORDERED: AMPICILLIN SODIUM 2 GM VIAL ONE (01:04)
[2022-03-02] MEDS ORDERED: FENTANYL/BUPIVACAINE/NS/PF - PCEA - 50 ML DISP.SYRIN EP ONE ×2 (01:09→05:13)
[2022-03-02] MEDS: FENTANYL/BUPIVACAINE/NS/PF - PCEA - 50 ML DISP.SYRIN EP SCH ×2 (01:45→05:15)
[2022-03-02] MEDS ORDERED: NALOXONE HCL 0.4 MG/ML VIAL IVPUSH PRN (02:02)
[2022-03-02] MEDS ORDERED: OXYTOCIN 30 UNITS in 0.9% NS 30 UNIT/500 ML INFUS.BAG IVPB ONE (02:31)
[2022-03-02] MEDS ORDERED: AMPICILLIN SODIUM 1 GM VIAL ONE (04:03)
[2022-03-02] MEDS ORDERED: AMPICILLIN - 1 GM in SODIUM CHLORIDE 100 ML IVPB SCH (04:10)
[2022-03-02] MEDS ORDERED: OXYTOCIN 20 UNITS in 0.9% NS 20 UNIT/1,000 ML INFUS.BAG IV ONE (05:43)
[2022-03-02] MEDS ORDERED: METHYLERGONOVINE MALEATE 0.2 MG/1 ML AMP IM PRN (06:00)
[2022-03-02] MEDS ORDERED: oxyCODONE HCL 5 MG TABLET PO PRN (06:00)
[2022-03-02] MEDS ORDERED: BISACODYL 10 MG SUPP.RECT RC PRN (06:00)
[2022-03-02] MEDS ORDERED: BENZOCAINE 20% 57 GM BOTTLE TP PRN (06:00)
[2022-03-02] MEDS ORDERED: OXYTOCIN 20 UNITS in 0.9% NS 20 UNIT/1,000 ML INFUS.BAG IV SCH (06:00)
[2022-03-02] MEDS ORDERED: WITCH HAZEL 50% (TUCKS) 40 PAD/JAR PAD TP PRN (06:00)
[2022-03-02] MEDS ORDERED: BENZOCAINE 28 GM HEMORRHOIDAL OINTMENT TP PRN (06:00)
[2022-03-02 07:02] LABS: CORD BASE EXCESS -6.9 mmol/L (0-2); CORD HCO3 21.1 mmHg (20-29); CORD PCO2 52.2 mmHg (30-78); CORD pH 7.225 (7.14-7.44)
[2022-03-02 07:05] LABS: CORD BASE EXCESS -5.4 mmol/L (0-2); CORD HCO3 20.8 mmHg (20-29); CORD PCO2 42.8 mmHg (30-78); CORD pH 7.304 (7.14-7.44)
[2022-03-02] MEDS: FERROUS SO4 325 MG TABLET (FP) PO SCH ×3 (09:45→16:56)
[2022-03-02] MEDS: PRENATAL VITAMINS W/ FOLIC ACID TABLET (FP) PO SCH (09:45)
[2022-03-02] MEDS: IBUPROFEN 600 MG TABLET (FP) PO PRN ×3 (09:45→22:03)
[2022-03-02] MEDS: diphenhydrAMINE HCL 25 MG CAPSULE (FP) PO PRN (22:50)
[2022-03-03] MEDS: IBUPROFEN 600 MG TABLET (FP) PO PRN ×5 (01:57→22:56)
[2022-03-03] MEDS: diphenhydrAMINE HCL 25 MG CAPSULE (FP) PO PRN ×4 (04:50→22:56)
[2022-03-03] MEDS ORDERED: OXYTOCIN 30 UNITS in 0.9% NS 30 UNIT/500 ML INFUS.BAG IVPB ONE (09:03)
[2022-03-03] MEDS: ACETAMINOPHEN 325 MG TABLET (FP) PO PRN (09:19)
[2022-03-03] MEDS: FERROUS SO4 325 MG TABLET (FP) PO SCH ×3 (09:19→17:30)
[2022-03-03] MEDS: PRENATAL VITAMINS W/ FOLIC ACID TABLET (FP) PO SCH (09:19)
[2022-03-03] MEDS ORDERED: FENTANYL/BUPIVACAINE/NS/PF - PCEA - 50 ML DISP.SYRIN EP ONE (11:07)
[2022-03-03 11:15] LABS: BASO % 0.2 % (0-2.0); EOS % 3.2 % (0-4.5); HEMATOCRIT 35.4 % (32.4-45.2); HEMOGLOBIN 11.9 GM/dL (10.7-15.3); LYMPH % 14.5 % (8-40); MCH 28.1 pg (25.7-33.7); MCHC 33.4 g/dl (32.0-36.0); MEAN CELL VOLUME 84.1 fl (80-96); MEAN PLT VOLUME 7.2 fl (7.5-11.1); NEUT % 76.1 % (42.8-82.8); PLATELET COUNT 189 10^3/uL (134-434); RBC 4.22 M/mm3 (3.60-5.2); RDW 15.7 % (11.6-15.6); WHITE BLOOD COUNT 12.7 K/mm3 (4.0-10.0)
[2022-03-03] MEDS ORDERED: SENNOSIDES/DOCUSATE COMBO (SENNA PLUS) TABLET (UD) PO PRN (22:00)
[2022-03-04] MEDS: diphenhydrAMINE HCL 25 MG CAPSULE (FP) PO PRN (05:48)
[2022-03-04] MEDS: PRENATAL VITAMINS W/ FOLIC ACID TABLET (FP) PO SCH (09:30)
[2022-03-04] MEDS: FERROUS SO4 325 MG TABLET (FP) PO SCH (09:31)
[2022-03-04] MEDS: IBUPROFEN 600 MG TABLET (FP) PO PRN (09:31)
[2022-03-04 10:44] VITALS: BP 117/80; PULSE 85; TEMP 98.2
[2022-03-04] MEDS: ACETAMINOPHEN 325 MG TABLET (FP) PO PRN (11:12)
== END 2022-03-04 12:40 | disposition home or self-care (01) | DRG 560 ==
LOC: JLDR 07:15 → J3W 03-02 08:00
PROVIDERS: ADMIT Obstetrics & Gynecology; ATTEND Obstetrics & Gynecology
PROC: 10E0XZZ Delivery of Products of Conception, External Approach (ICD-10-PCS; principal; 2022-03-02)
DX: O99.824 Streptococcus B carrier state complicating childbirth (principal); O69.81X0 Labor and delivery complicated by cord around neck, without compression, not applicable or unspecified; Z3A.38 38 weeks gestation of pregnancy; Z37.0 Single live birth
CPT/HCPCS: 36415; 36600; 59409; 82803; 85025